=== PATIENT | male | born 1955 | race Two or more races ===

== ENCOUNTER 2020-08-18 18:19 | Emergency (ER) | payer MEDICARE ==
[~2020-08-18] VITALS: Ht 172.7 cm; Wt 87.5 kg
--- NOTE | 2020-08-18 19:20 | NUR ---
AT BEDSIDE. LABS COMPLETE. BLOOD CULTURES COMPLETE. IV STARTED. PT ACCOMPANIED BY FAMILY.
[2020-08-18] MEDS ORDERED: ACETAMINOPHEN 500 MG TABLET ONE ×2 (19:40→19:41)
[2020-08-18 19:51] LABS: BASOPHILS % (AUTO) 1 % (0-1); EOSINOPHILS % (AUTO) 0 % (1-7); LYMPHOCYTES % (AUTO) 5 % (22-44); MEAN CORPUSCULAR HEMOGLOBIN 28.6 pg (27.5-34.5); MEAN CORPUSCULAR HGB CONC 34.4 g/dL (33.2-36.2); MEAN PLATELET VOLUME 10.3 fL (7.4-10.4); MONOCYTES % (AUTO) 6 % (2-9); NEUTROPHILS % (AUTO) 88 % (42-75); PLATELET COUNT 123 x10^3/uL (130-400); RED BLOOD COUNT 4.52 x10^6/uL (4.38-5.82); RED CELL DISTRIBUTION WIDTH 13.6 % (9.4-14.8)
[2020-08-18 19:52] LABS: MD NO
[2020-08-18] MEDS ORDERED: ACETAMINOPHEN 500 MG TABLET PO ONE (20:00)
[2020-08-18 20:04] LABS: ALANINE AMINOTRANSFERASE 27 U/L (12-78); ALBUMIN 3.1 g/dL (3.4-5.0); ANION GAP 8 mmol/L (5-15); CHLORIDE 97 mmol/L (98-107); CREATININE 1.35 mg/dL (0.7-1.3)
[2020-08-18 20:08] LABS: ALKALINE PHOSPHATASE 110 U/L (45-117); TOTAL PROTEIN 6.6 g/dL (6.4-8.2)
--- NOTE | 2020-08-18 21:01 | NUR ---
PT COMES IN C/O FEVER CHILLS COUGH, CHEST CONGESTION STARTING LAST WEDNESDAY. ELEVATED TEMPERATURE ON ARRIVAL. MONITORS CONNECTED. EKG COMPLETE. CXR AND LABS IN PROGRESS. PT ACCOMPANIED BY FAMILY.
--- NOTE | 2020-08-18 21:04 | NUR ---
DR DIETZ AT BEDSIDE FOR FLU AND COVID SWAB
[2020-08-18 21:43] LABS: RAPID INFLUENZA A Negative (Negative); RAPID INFLUENZA B Negative (Negative)
--- NOTE | 2020-08-18 21:55 | NUR ---
PT RESTING ON GURNEY. PT AND FAMILY UDATED ON PLAN OF CARE. VSS. NAD. STATES NO ADDITIONAL NEEDS AT THIS TIME
[2020-08-18] MEDS ORDERED: DEXAMETHASONE 4 MG TABLET PO ONE (22:30)
[2020-08-18] MEDS ORDERED: DEXAMETHASONE 4 MG TABLET ONE (22:33)
[2020-08-18 22:47] VITALS: BP 151/99
== END 2020-08-18 23:11 | disposition home or self-care (01) ==
LOC: ED 23:00
DX: U07.1 COVID-19 (principal); J06.9 Acute upper respiratory infection, unspecified; R94.31 Abnormal electrocardiogram [ECG] [EKG]
CPT/HCPCS: 36415; 71045; 80053; 83605; 83880; 85025; 87040; 87400; 93005; 99285; U0003

== ENCOUNTER 2021-02-07 21:05 | Emergency (ER) | payer MEDICARE ==
[~2021-02-07] VITALS: Ht 172.7 cm; Wt 92.3 kg
[2021-02-07] MEDS ORDERED: NITROGLYCERIN OINT 2%, 1GM TP ONE ×2 (22:22→22:30)
[2021-02-07] MEDS ORDERED: LABETALOL 5MG/ML, 20ML ONE (22:23)
[2021-02-07] MEDS ORDERED: PROPARACAINE OPHTH 0.5%, 15ML EACHEYE ONE (22:30)
[2021-02-07] MEDS ORDERED: SODIUM CHLORIDE FLUSH 10ML SYR IVF ONE (22:30)
[2021-02-07] MEDS ORDERED: LABETALOL 5MG/ML, 20ML IVPush ONE (22:30)
[2021-02-07] MEDS ORDERED: FLUORESCEIN OPHTHALMIC 1 MG STRIP EACHEYE ONE (22:30)
--- NOTE | 2021-02-07 22:36 | NUR ---
PT MOVED TO ROOM 19, AFTER VISUAL ACUITY CHECK. PT STATES THAT HIS VISION PROBLEMS WERE MORE LIKELY DUE TO HTN AND PT IS HYPERTENSIVE AT THIS TIME. MD AWARE AND MD TO ROOM, RECEIVED ORDERS. PIV TO RIGHT HAND STARTED X1 ATTEMPT, 18G AND FLUSHED EASY. IVF NS HUNG TO RUN TKO. PT MEDICATED WITH LABETALOL, SEE EMAR, AND NITRO OINTMENT, SEE EMAR. PT ON COMPLETE CR MONITOR, AND PTS DAUGHTER AT BEDSIDE.
[2021-02-07 22:41] LABS: BASOPHILS % (AUTO) 0 % (0-1); EOSINOPHILS % (AUTO) 3 % (1-7); LYMPHOCYTES % (AUTO) 20 % (22-44); MEAN CORPUSCULAR HEMOGLOBIN 28.1 pg (27.5-34.5); MEAN CORPUSCULAR HGB CONC 33.7 g/dL (33.2-36.2); MEAN PLATELET VOLUME 10.7 fL (7.4-10.4); MONOCYTES % (AUTO) 13 % (2-9); NEUTROPHILS % (AUTO) 64 % (42-75); PLATELET COUNT 165 x10^3/uL (130-400); RED BLOOD COUNT 4.62 x10^6/uL (4.38-5.82); RED CELL DISTRIBUTION WIDTH 14.4 % (9.4-14.8)
[2021-02-07 22:52] LABS: ALANINE AMINOTRANSFERASE 38 U/L (12-78); ALBUMIN 3.6 g/dL (3.4-5.0); ANION GAP 8 mmol/L (5-15); CALCIUM 8.8 mg/dL (8.5-10.1); CHLORIDE 107 mmol/L (98-107); CREATININE 1.22 mg/dL (0.7-1.3)
[2021-02-07 22:54] LABS: ALKALINE PHOSPHATASE 170 U/L (45-117); BILIRUBIN,TOTAL 0.9 mg/dL (0.2-1.0); TOTAL PROTEIN 7.1 g/dL (6.4-8.2)
--- NOTE | 2021-02-07 22:56 | NUR ---
PT TAKEN TO CT SCAN, NO ISSUES. PT BROUGHT BACK FROM CT SCAN, BACK ON CR MONITOR.
[2021-02-07 23:11] LABS: INTERNATIONAL NORMALIZED RATIO 1.01 (0.93-1.1); PROTHROMBIN TIME 10.8 Seconds (9.6-11.5)
--- NOTE | 2021-02-07 23:18 | NUR ---
PT RESTING COMFORTABLY, NO ACUTE DISTRESS, BP HAS COME DOWN, MD AWARE, AND PT HAS SIDERAILS UP X2 AND CALL LIGHT WITHIN REACH.
[2021-02-08] MEDS ORDERED: PHENYLEPHRINE NASAL 1%, 15ML SPRAY ONE (00:13)
[2021-02-08] MEDS ORDERED: TROPICAMIDE OPHTH 1%, 15ML OP ONE (00:30)
[2021-02-08] MEDS ORDERED: PHENYLEPHRINE OPHTH 2.5%, 2.5ML EACHEYE ONE (00:30)
--- NOTE | 2021-02-08 00:38 | NUR ---
OPHTHOLMOLAGIST IN TO SEE THE PT AND EYE DROP MEDS FOR DILATION PLACED PER MD. PT TOLERATED WELL.
--- NOTE | 2021-02-08 01:39 | NUR ---
PT A&OX4, NO ACUTE DISTRESS. PT CALM AND COOPERATIVE. PIV D/C'D WITH CATH TIP INTACT. AND F/U AND D/C INSTRUCTIONS WITH PRESCRIPTIONS GIVEN TO PT AND HE V/U. PT AMBULATORY TO DISCHARGE DESK. NITRO PASTE PATCH REMOVED AND PT CLEANED.
[2021-02-08 01:41] VITALS: BP 168/90
== END 2021-02-08 01:43 | disposition home or self-care (01) ==
LOC: ED 02-08 01:00
DX: H54.62 Unqualified visual loss, left eye, normal vision right eye (principal); H40.1120 Primary open-angle glaucoma, left eye, stage unspecified; R51.9 Headache, unspecified; R94.31 Abnormal electrocardiogram [ECG] [EKG]; I10 Essential (primary) hypertension; E03.9 Hypothyroidism, unspecified
CPT/HCPCS: 36415; 70450; 80053; 85025; 85610; 85730; 93005; 96374; 99285

== ENCOUNTER 2021-03-05 08:41 | Day surgery (SDC) | payer OTHER ==
[2021-03-03 14:31] LABS: CHLORIDE 100 mmol/L (98-107)
[2021-03-03 14:45] LABS: ALANINE AMINOTRANSFERASE 47 U/L (12-78); ALBUMIN 3.6 g/dL (3.4-5.0); ALKALINE PHOSPHATASE 181 U/L (45-117); ANION GAP 9 mmol/L (5-15); BILIRUBIN,TOTAL 0.8 mg/dL (0.2-1.0); CALCIUM 9.6 mg/dL (8.5-10.1); CREATININE 1.46 mg/dL (0.7-1.3); TOTAL PROTEIN 6.9 g/dL (6.4-8.2)
[~2021-03-05] VITALS: Ht 172.7 cm; Wt 86.1 kg
[~2021-03-05 08:41] MED LIST: ASPI81TA45 PO; CHLO25TA PO; LEVO112T4 PO; METF500T17 PO; METO25TA91 PO
[2021-03-05] MEDS ORDERED: METHOCARBAMOL 1,000 MG in DEXTROSE 5% 100 ML IV PRN (09:00)
[2021-03-05] MEDS ORDERED: MEPERIDINE/PF 25MG/0.5ML IVPush PRN (09:00)
[2021-03-05] MEDS ORDERED: HYDROmorphone 1 MG/ML, 1ML INJ IVPush PRN (09:00)
[2021-03-05] MEDS ORDERED: ACETAMINOPHEN 325 MG TABLET PO PRN (09:00)
[2021-03-05] MEDS ORDERED: PROMETHAZINE 25 MG/ML, 1ML IVPush PRN (09:00)
[2021-03-05] MEDS ORDERED: ONDANSETRON 2MG/ML, 2ML IVPush PRN (09:00)
[2021-03-05] MEDS ORDERED: LORazepam 2 MG/ML, 1ML IVPush PRN (09:00)
[2021-03-05] MEDS ORDERED: FENTANYL PF 100 MCG/2ML IV PRN (09:00)
[2021-03-05] MEDS ORDERED: hydrALAzine 20 MG/ML, 1ML IV PRN (09:00)
[2021-03-05] MEDS ORDERED: OXYcodone 5 MG/5 ML ORAL.SOL UDC PO PRN (09:00)
[2021-03-05] MEDS ORDERED: LABETALOL 5MG/ML, 20ML IV PRN (09:00)
[2021-03-05 09:14] VITALS: BP 202/94
[2021-03-05] MEDS ORDERED: LACTATED RINGERS 1,000 ML IV SCH (09:30)
[2021-03-05] MEDS ORDERED: CHLORHEXIDINE 15 ML UDC PO ONE (09:30)
[2021-03-05] MEDS ORDERED: FENTANYL PF 250 MCG/5ML ONE (10:11)
[2021-03-05] MEDS ORDERED: LABETALOL 5MG/ML, 20ML IVPush ONE (10:30)
[2021-03-05] MEDS ORDERED: EPINEPHRINE 1 MG/ML, 1ML ONE (10:58)
[2021-03-05] MEDS ORDERED: BUPIVACAINE/PF 0.25% ONE (10:58)
[2021-03-05] MEDS ORDERED: SUCCINYLCHOLINE 20 MG/ML, 10ML ONE (11:04)
[2021-03-05] MEDS ORDERED: ROCURONIUM 10 MG/ML,10ML ONE (11:04)
[2021-03-05] MEDS ORDERED: CEFAZOLIN 1,000 MG ONE (11:04)
[2021-03-05] MEDS ORDERED: PROPOFOL 10 MG/ML, 20ML ONE (11:04)
[2021-03-05] MEDS ORDERED: ONDANSETRON 2MG/ML, 2ML ONE (11:04)
== END 2021-03-05 15:50 | disposition home or self-care (01) ==
LOC: OUT 08:41 → EDSTATUS 10:30 → OUT 15:50
PROVIDERS: ATTEND Orthopaedic Surgery
DX: S82.862A Displaced Maisonneuve's fracture of left leg, initial encounter for closed fracture (principal); I10 Essential (primary) hypertension; E11.9 Type 2 diabetes mellitus without complications; Z20.822 Contact with and (suspected) exposure to COVID-19; Z79.899 Other long term (current) drug therapy; Z88.0 Allergy status to penicillin; W00.0XXA Fall on same level due to ice and snow, initial encounter; Y93.89 Activity, other specified; Y92.89 Other specified places as the place of occurrence of the external cause; Y99.0 Civilian activity done for income or pay
CPT/HCPCS: 27829; 29898; 36415; 64445; 64447; 73600; 80053; 82962; 93005; C1713; J0171; J0330; J0690; J2405; J2704; J3010; U0003; U0005; 76000